=== PATIENT | female | born 1970 | race Two or more races ===

== ENCOUNTER 2019-08-20 09:01 | Outpatient (CLI) | payer BC | END 2019-08-20 23:59 | disposition home or self-care (01) | LOC: CFH 09:01 | PROVIDERS: ATTEND Obstetrics & Gynecology | DX: Z12.31 Encounter for screening mammogram for malignant neoplasm of breast (principal) | CPT/HCPCS: 77067 ==

== ENCOUNTER 2019-09-09 13:14 | Outpatient (CLI) | payer BC | END 2019-09-09 23:59 | disposition home or self-care (01) | LOC: CFH 13:14 | PROVIDERS: ATTEND Obstetrics & Gynecology | DX: N63.20 Unspecified lump in the left breast, unspecified quadrant (principal) | CPT/HCPCS: 77065; G0279 ==

== ENCOUNTER → 2020-09-13 | Outpatient (CLI) | payer OTHER | END | disposition home or self-care (01) | LOC: CFH 09:52 | PROVIDERS: ATTEND Obstetrics & Gynecology | DX: Z12.31 Encounter for screening mammogram for malignant neoplasm of breast (principal) | CPT/HCPCS: 77063; 77067 ==